=== PATIENT | female | born 1940 | race Caucasian/White ===

== ENCOUNTER 2018-06-09 20:23 | Inpatient (IN) | payer MEDICARE, OTHER ==
--- NOTE | 2018-06-09 21:31 | ED ---
Fall HPI - General Source: patient Mode of arrival: EMS <Nyasia Cline - Last Filed: 06/10/18 05:10> <Sera Sharma - Last Filed: 06/29/18 04:06> - General Chief Complaint: Fall Stated Complaint: Hip Fx Time Seen by Provider: 06/09/18 21:14 - History of Present Illness Initial Comments: 77-year-old female patient presents to the emergency department today as a transfer from a hospital in [facility] for right hip fracture. Patient states around 1 PM this afternoon she was in the garage airing out some rags when she turned, fell, and landed on the right hip. Patient states that she was unable to stand or walk due to severe right hip pain. States the pain radiated down her leg. She denies any numbness or tingling to the right lower extremity. Patient denies hitting her head or losing consciousness during the fall. Patient states that she did have x-rays at the other hospital which did show a right hip fracture so she was transferred here for further evaluation. Patient is traveling to the area from [place]. She denies any other injuries. Denies any significant past medical history. Does not take any medications. Patient denies any headache, neck pain, back pain, chest pain, shortness of breath, dizziness, weakness, abdominal pain, nausea, vomiting, or difficulties with bowel movements or urination. (Nyasia Cline) - Related Data Home Medications Medication Instructions Recorded Confirmed Ascorbic Acid [Vitamin C] 500 mg PO DAILY 06/09/18 06/09/18 Aspirin EC [Ecotrin Low Dose] 81 mg PO DAILY 06/09/18 06/09/18 Calcium Carbonate/Vitamin D3 1 tab PO DAILY 06/09/18 06/09/18 [Calcium 500-Vit D3 200 Tablet] Flaxseed Oil [[place]-3 Flaxseed Oil] 1,000 mg PO DAILY 06/09/18 06/09/18 Multivitamins, Thera [Multivitamin 1 tab PO DAILY 06/09/18 06/09/18 (formulary)] [place]-3 Fatty Acids/Fish Oil [Fish 1 cap PO DAILY 06/09/18 06/09/18 Oil 1,000 mg Softgel] Vitamin E 100 unit PO DAILY 06/09/18 06/09/18 Previous Rx's Medication Instructions Recorded Aspirin 325 mg PO BID #60 tab 06/14/18 Docusate [Colace] 100 mg PO BID #60 capsule 06/14/18 HYDROcodone/APAP 5-325MG [[place] 1 tab PO Q4HR PRN #42 tab 06/14/18 5-325] Aspirin 325 mg PO BID #4 tab 06/15/18 HYDROcodone/APAP 5-325MG [[place] 1 - 2 tab PO Q4-6H PRN #10 tab 06/15/18 5-325] Allergies Allergy/AdvReac Type Severity Reaction Status Date / Time No Known Allergies Allergy Verified 06/09/18 23:23 Review of Systems ROS Other: All systems not noted in ROS Statement are negative. <Nyasia Cline - Last Filed: 06/10/18 05:10> ROS Other: All systems not noted in ROS Statement are negative. <Sera Sharma - Last Filed: 06/29/18 04:06> ROS Statement: Those systems with pertinent positive or pertinent negative responses have been documented in the HPI. Past Medical History Additional Past Medical History / Comment(s): eye problems History of Any Multi-Drug Resistant Organisms: None Reported Additional Past Surgical History / Comment(s): cataracts Past Psychological History: No Psychological Hx Reported Smoking Status: Never smoker Past Alcohol Use History: None Reported Past Drug Use History: None Reported - Past Family History Mother History Unknown: Yes Father History Unknown: Yes <Nyasia Cline - Last Filed: 06/10/18 05:10> General Exam Limitations: no limitations General appearance: alert, in no apparent distress, other (This is a well- developed, well-nourished elderly female patient in no acute distress. Vital signs upon presentation are temperature 98.6F, pulse 77, respirations 18, blood pressure 134/75, pulse ox 96% on room air.) Eye exam: Present: normal appearance, PERRL, EOMI. Absent: scleral icterus, conjunctival injection, periorbital swelling ENT exam: Present: normal exam, normal oropharynx, mucous membranes moist Neck exam: Present: normal inspection, full ROM. Absent: tenderness, meningismus, lymphadenopathy Respiratory exam: Present: normal lung sounds bilaterally. Absent: respiratory distress, wheezes, rales, rhonchi, stridor Cardiovascular Exam: Present: regular rate, normal rhythm, normal heart sounds. Absent: systolic murmur, diastolic murmur, rubs, gallop, clicks GI/Abdominal exam: Present: soft, normal bowel sounds. Absent: distended, tenderness, guarding, rebound, rigid Extremities exam: Present: full ROM, tenderness (Right hip tenderness), normal capillary refill, other (External rotation of the right leg. Skin is pink, warm , and dry. Cap refills less than 3 seconds. Pedal and posttibial pulses are 2 + and equal bilaterally.). Absent: normal inspection, pedal edema, joint swelling, calf tenderness Neurological exam: Present: alert, oriented X3, CN II-XII intact Psychiatric exam: Present: normal affect, normal mood Skin exam: Present: warm, dry, intact, normal color. Absent: rash <Nyasia Cline - Last Filed: 06/10/18 05:10> Vital Signs 06/09/18 06/09/18 06/10/18 20:48 23:33 00:38 Temperature 98.6 F 98.3 F Pulse Rate 77 69 Pulse Rate [ 72 Left Pulse Oximetery] Respiratory 18 16 18 Rate Blood Pressure 134/75 145/76 Blood Pressure 148/72 [Left Arm] O2 Sat by Pulse 96 95 97 Oximetry Medical Decision Making - Lab Data Result diagrams: 06/09/18 23:31 - Radiology Data Radiology results: report reviewed, image reviewed <Nyasia Cline - Last Filed: 06/10/18 05:10> - Lab Data Result diagrams: 06/15/18 06:51 06/13/18 07:22 <Sera Sharma - Last Filed: 06/29/18 04:06> - Medical Decision Making 77-year-old female patient presented as a transfer from the [facility] for right hip fracture. Physical examination did reveal external rotation of the right leg. Images reviewed and did show a mildly displaced intertrochanteric fracture of the right femur. My attending Dr. Sharma did speak to Dr. Wills and he agrees to admission. He requests imaging from hip to knee for possible IM nailing tomorrow. I did discuss findings, results, and plan with the patient, she is agreeable. Ordered preop labs and EKG. (Nyasia Cline) I personally saw and examined the patient. I reviewed and agree with the mid- level provider findings including all diagnostic interpretations and treatment plans as written unless otherwise stated. I was present for herrera portions of any procedures performed. (Sera Sharma) - Radiology Data One view x-ray of the chest is obtained. There is no heart failure nor confluent pneumonic infiltrate. Costophrenic angles are clear. Mediastinum is normal. There is mild flattening of the diaphragm. Impression by Dr. Cross shows probably some COPD. No active cardiopulmonary disease. 4 views of the right femur are obtained. There is a comminuted intertrochanteric fracture of the right femur. There is no dislocation. There is acetabular spurring. Impression by Dr. Cross shows acute intertrochanteric fracture right femur with large fragment of the lesser trochanter. Outside images did show a mildly displaced intertrochanteric fracture of the right femur. The pelvis x-ray appeared normal. (Nyasia Cline) Disposition Decision to Admit Reason: Admit from [facility] Decision Date: 06/09/18 Decision Time: 22:58 <Nyasia Cline - Last Filed: 06/10/18 05:10> <Sera Sharma - Last Filed: 06/29/18 04:06> Clinical Impression: Displaced intertrochanteric fracture of right femur Disposition: ADMITTED IP TO THIS [facility] Condition: Fair
[2018-06-09] MEDS ORDERED: NALOXONE 0.4 MG/ML 1 ML VIAL IV PRN (22:56)
[2018-06-09] MEDS ORDERED: ONDANSETRON 4 MG/2 ML VIAL IVP PRN (22:56)
[2018-06-09] MEDS ORDERED: ACETAMINOPHEN TAB 325 MG TAB PO PRN (22:56)
[2018-06-09] MEDS: MORPHINE SULFATE 4 MG/ML SYRINGE IV PRN (23:29)
[2018-06-09] MEDS: SODIUM CHLORIDE 0.9% 1,000 ML IV SCH (23:32)
[2018-06-09 23:40] LABS: Basophils % (A) 0 %; Eosinophils # (A) 0.1 k/uL (0-0.7); Eosinophils % (A) 1 %; HGB 12.5 gm/dL (11.4-16.0); Lymphocytes # (A) 0.8 k/uL (1.0-4.8); Lymphocytes % (A) 7 %; MCH 29.1 pg (25.0-35.0); MCV 88.2 fL (80.0-100.0); Mean Platelet Volume 7.5; Monocytes # (A) 0.4 k/uL (0-1.0); Monocytes % (A) 4 %; Neutrophils # (A) 10.3 k/uL (1.3-7.7); Neutrophils % (A) 88 %; Platelet Count 198 k/uL (150-450); RBC 4.31 m/uL (3.80-5.40); RDW 12.7 % (11.5-15.5); WBC 11.7 k/uL (3.8-10.6)
[2018-06-09 23:50] LABS: INR 1.1 (<1.2); Partial Thromboplastin Time 23.1 sec (22.0-30.0); Prothrombin Time 10.6 sec (9.0-12.0)
--- NOTE | 2018-06-10 00:22 | XR ---
EXAMINATION TYPE: XR femur RT DATE OF EXAM: 06/10/2018 COMPARISON: NONE HISTORY: Right hip pain TECHNIQUE: 4 views FINDINGS: There is comminuted intertrochanteric fracture right femur. There is no dislocation. There is acetabular spurring. IMPRESSION: Acute intertrochanteric fracture right femur with large fragment of the lesser trochanter .
--- NOTE | 2018-06-10 00:23 | XR ---
EXAMINATION TYPE: XR chest 1V portable DATE OF EXAM: 06/10/2018 COMPARISON: NONE HISTORY: Preop TECHNIQUE: Single frontal view of the chest is obtained. FINDINGS: There is no heart failure nor confluent pneumonic infiltrate. Costophrenic angles are henrietta r. Mediastinum is normal. There is mild flattening of the diaphragm. IMPRESSION: There is probably some COPD. No active cardiopulmonary disease.
[2018-06-10] MEDS: MORPHINE SULFATE 4 MG/ML SYRINGE IV PRN ×2 (05:10→11:35)
--- NOTE | 2018-06-10 09:10 | P.HPOR ---
History of Present Illness H&P Date: 06/10/18 Chief Complaint: Right hip pain The patient is a pleasant 77-year-old female who resented to the emergency department at [facility] after [place] [facility]. She states that yesterday she fell around 1 PM while in the garage [place] [facility] She states that she thinks she tripped on something when she turned quickly and fell directly on her right side. She denies hitting her head or other injuries. She was found to have a right hip fracture at the hospital on [facility] and was transferred here for further evaluation and care by orthopedic surgery. She currently lives in [place] and again was here in the area at [place] [facility] She states that her family is currently on their way. The patient denies any major medical problems in regards to hypertension, stroke , heart attack, or cancer. Today, the patient is experiencing right hip pain as expected. She states that she is comfortable at this time. She denies fever , chills, rigors, abdominal pain, shortness breath, chest pain at this time. Review of Systems Constitutional: Denies chills, Denies fatigue, Denies fever Cardiovascular: Denies chest pain, Denies shortness of breath Respiratory: Denies cough Gastrointestinal: Denies diarrhea, Denies nausea, Denies vomiting Musculoskeletal: Denies frequent falls Musculoskeletal: right: hip pain, hip stiffness, hip swelling Past Medical History Additional Past Medical History / Comment(s): eye problems History of Any Multi-Drug Resistant Organisms: None Reported Additional Past Surgical History / Comment(s): cataracts Past Anesthesia/Blood Transfusion Reactions: No Reported Reaction Past Psychological History: No Psychological Hx Reported Smoking Status: Never smoker Past Alcohol Use History: None Reported Past Drug Use History: None Reported - Past Family History Mother History Unknown: Yes Father History Unknown: Yes Medications and Allergies Home Medications Medication Instructions Recorded Confirmed Type Ascorbic Acid [Vitamin C] 500 mg PO DAILY 06/09/18 06/09/18 History Aspirin EC [Ecotrin Low Dose] 81 mg PO DAILY 06/09/18 06/09/18 History Calcium Carbonate/Vitamin D3 1 tab PO DAILY 06/09/18 06/09/18 History [Calcium 500-Vit D3 200 Tablet] Flaxseed Oil [[place]-3 Flaxseed Oil] 1,000 mg PO DAILY 06/09/18 06/09/18 History Multivitamins, Thera [Multivitamin 1 tab PO DAILY 06/09/18 06/09/18 History (formulary)] [place]-3 Fatty Acids/Fish Oil [Fish 1 cap PO DAILY 06/09/18 06/09/18 History Oil 1,000 mg Softgel] Vitamin E 100 unit PO DAILY 06/09/18 06/09/18 History Allergies Allergy/AdvReac Type Severity Reaction Status Date / Time No Known Allergies Allergy Verified 06/09/18 23:23 Physical Examination The patient is a 77 year old female that is no acute distress. She is alert and oriented x3. The patient's head is normocephalic and atraumatic. Exam of the cervical spine reveals no pain upon palpation or range of motion. Exam of the bilateral upper extremities reveal no obvious deformities or pain upon range of motion. Exam of the left lower extremity reveals no pain upon palpation. Exam of the right lower extremity reveals a externally rotated and shortened leg. No pain upon palpation to the lateral hip. There is pain upon logrolling and any range of motion of the leg. Bilateral calves are soft and nontender. Patient has good foot and ankle motion bilaterally. Neurological and circulatory status is intact. Results - Labs Labs: Abnormal Lab Results - Last 24 Hours (Table) 06/09/18 Range/Units 23:31 WBC 11.7 H (3.8-10.6) k/uL Neutrophils # 10.3 H (1.3-7.7) k/uL Lymphocytes # 0.8 L (1.0-4.8) k/uL H & H 06/09/18 Range/Units 23:31 Hgb 12.5 (11.4-16.0) gm/dL Hct 38.0 (34.0-46.0) % Coagulation 06/09/18 Range/Units 23:31 INR 1.1 (<1.2) Result Diagrams: 06/09/18 23:31 - Diagnostic results Hip x-ray: image reviewed (Femur x-rays dated 06/10/2018 reveals a acute intertrochanteric fracture with a large fragment of the lesser trochanter.) Assessment and Plan (1) Fall Current Visit: Yes Status: Acute Code(s): W19.XXXA - UNSPECIFIED FALL, INITIAL ENCOUNTER SNOMED Code(s): 3547284 (2) Displaced intertrochanteric fracture of right femur Current Visit: Yes Status: Acute Code(s): S72.141A - DISPLACED INTERTROCHANTERIC FRACTURE OF RIGHT FEMUR, INIT SNOMED Code(s): 985657016 Plan: The clinical and x-ray findings were discussed with the patient. The case was also discussed with Dr. Wills. We are recommending intertrochanteric nailing with a TFN. She will be scheduled for this procedure this afternoon. She'll remain nothing by mouth. We will await surgical clearance by Dr. Bolivar. Surgical risks were discussed at length with the patient. Possible risks and complications including but not limited to risk of bleeding, infection , dislocation, DVT, stroke, heart attack, and were discussed. The patient would like to proceed with surgery. She will remain nonweightbearing on bedrest until surgery. The patient would like to return back to her home in [place] after surgery. Case management is also on the case for discharge planning.
--- NOTE | 2018-06-10 11:56 | CONS ---
CONSULTATION CHIEF COMPLAINT: A 77-year-old white female who came in, transferred from [place] for right hip fracture. She was that she turned, fell down on her right hip, unable to stand or walk due to severe hip pain, radiating down her leg, no numbness in her leg. She had x-rays which showed a right hip fracture, transferred here for further evaluation, transferred to the area from [place]. Does not take any home medications except for her vitamins. Home medicines ascorbic acid and aspirin, calcium flexi, multivitamin, omega-3 acids, vitamin E. ALLERGIES: No known drug allergies. 14 POINT REVIEW OF SYSTEMS: Negative except for as mentioned in HPI. PAST MEDICAL HISTORY: Cataracts. SOCIAL HISTORY: No smoking. No alcohol. No illicit drugs. FAMILY HISTORY: Mother and father negative. Temperature 98.6, pulse 69 to 77, respiratory 16 to 18, blood pressure 130s to 140s/70s, O2 is 95%-97% on room air. CARDIOVASCULAR: S1, S2. Lungs are clear. GI: Soft, nontender. EXTREMITIES: No cyanosis, clubbing. DERM: Negative. NEUROLOGIC: Alert and orient x3. PSYCH: Fair mood and affect. SKIN: No rash, excoriation, or bruising. Blood pressure 134/75, O2 is 96% on room air, respiratory 16 to 18, pulse 70s, temp 98.6. ASSESSMENT: Right hip fracture. No significant past medical history. We are awaiting on EKG at this time. If the EKG looks good, she will be able to be cleared for surgery at this time. MMODL / IJN: [id number] /
[2018-06-10] MEDS ORDERED: IV FLUID CONTINUATION 1,000 ML IV ONE (13:56)
[2018-06-10] MEDS ORDERED: KETAMINE 10 MG/ML 20 ML VIAL ONE (14:48)
[2018-06-10] MEDS ORDERED: ESMOLOL 100 MG/10 ML VIAL ONE (14:48)
[2018-06-10] MEDS ORDERED: fentaNYL (PF) 50 MCG/ML 2 ML AMP ONE (14:48)
[2018-06-10] MEDS ORDERED: MIDAZOLAM 2 MG/2 ML VIAL ONE (14:48)
[2018-06-10] MEDS ORDERED: PHENYLEPHRINE-0.9% NACL SYG 1 MG/10 ML SYRINGE ONE (14:48)
[2018-06-10] MEDS ORDERED: ePHEDrine SULFATE/0.9% NACL/PF 50 MG/5 ML SYRINGE IV ONE (14:48)
[2018-06-10] MEDS ORDERED: SODIUM CHLORIDE 0.9% 50 ML with ceFAZolin 2,000 MG IV ONE ×2 (14:48)
[2018-06-10] MEDS ORDERED: LACTATED RINGERS 1,000 ML IV ONE (15:55)
[2018-06-10] MEDS ORDERED: HYDROmorphone 0.5 MG/0.5 ML SYRINGE IVP PRN ×3 (16:41)
[2018-06-10] MEDS ORDERED: TEMAZEPAM 15 MG CAP PO PRN (16:41)
[2018-06-10] MEDS ORDERED: MAGNESIUM HYDROXIDE 2,400 MG/10 ML CUP PO PRN (16:41)
[2018-06-10] MEDS ORDERED: SODIUM CHLORIDE 0.9% 1,000 ML IV ONE (17:37)
[2018-06-10] MEDS: HYDROcodone/APAP 5-325MG 1 EACH TAB PO PRN ×2 (18:33→23:05)
[2018-06-10] MEDS: SODIUM CHLORIDE 0.9% 1,000 ML IV SCH (18:51)
[2018-06-10] MEDS ORDERED: HYDROmorphone 1 MG/ML 1 ML SYRINGE IVP PRN ×2 (19:59)
[2018-06-10] MEDS: HYDROmorphone 1 MG/ML 1 ML SYRINGE IVP PRN (20:04)
[2018-06-10] MEDS: SENNOSIDES-DOCUSATE SODIUM 1 EACH TAB PO SCH (20:05)
--- NOTE | 2018-06-10 20:43 | OP ---
OPERATIVE REPORT DATE OF SURGERY: 06/10/2018 PREOPERATIVE DIAGNOSIS: Right displaced intertrochanteric hip fracture. POSTOPERATIVE DIAGNOSIS: Right displaced intertrochanteric hip fracture. PROCEDURE: Operative fixation of right intertrochanteric hip fracture with long intramedullary hip screw. (The patient is from out of town and postoperative followup will be obtained by a separate physician who has already agreed to follow the patient.) SURGEON: Dr. Ar Wills. SQUARING MACHINE OPERATOR: Sophia Sifuentes NP. ANESTHESIA: Spinal. FLUIDS: 1700 mL crystalloid. BLOOD LOSS: 200 mL. URINE OUTPUT: 140 mL crystalloid. COMPLICATIONS: The patient had a sustained run of tachycardia at the conclusion of the procedure during skin closure. Her heart rate was in the 140s. Anesthesia managed the patient, who remained alert and conscious. She had vital signs checked before leaving the operating room and her vital signs remained stable. The patient is to be sent to a telemetry floor for continuous monitoring with a cardiology consult, serial troponins and a 12-lead EKG. INDICATION: The patient is a very pleasant, previously healthy 77-year-old female who is visiting [place] from her home in [place], [place]. The patient sustained a ground-level fall resulting in a right hip fracture. She was initially seen at an outside emergency department and was transferred to our facility. She was found to have an isolated hip fracture and was determined to be in good health, so she was admitted to Orthopedics. I met with the patient preoperatively to discuss treatment of her fracture. It was my recommendation to stabilize her fracture with a long intramedullary hip screw. We discussed the potential risks and complications of surgery, including but not limited to risk of anesthesia, risk of superficial infection, risk of deep infection, risk of delayed wound healing, risk of damage to local blood vessels or nerves, risk of fracture nonunion, risk of fracture malunion, risk of hardware failure, risk of varus collapse, risk of cut-out of the helical blade, risk of chronic pain, risk of chronic swelling, risk of inability to regain pre-injury level of function, risk of DVT, risk of PE, risk of pneumonia, risk of pressure sore, risk of urinary tract infection, risk of acute coronary event, risk of stroke and possible loss of life or limb. The patient voiced her understanding of all of this and also acknowledged that there are other less common complications that are possible. She provided her verbal and written consent to go forward with surgery. PROCEDURE: The patient was identified in Preoperative Holding and the correct right leg was marked with my initials. I reviewed the consent form with the patient and all of her questions were answered. The patient was then brought back to the operating room. She was positioned on the edge of her gurney and a spinal anesthetic was administered by Anesthesia. She was also given preoperative Ancef for prophylactic antibiotics. Once her spinal had taken effect, she was carefully transferred to a fracture table. Light sedation was given. The affected right leg was placed into a boot and the left leg was secured to a well leg gardner. A peroneal post was placed. The right arm was draped across her body and her torso was shifted toward the left. Once the patient was adequately positioned on the fracture table and secured, a timeout was performed identifying the correct patient, operative extremity and procedure. Once the timeout had been completed, a closed reduction was performed with the aid of the fracture table. Using a combination of longitudinal traction, internal rotation and adduction, the hip was reduced. The leg was then prepped and draped in the standard sterile fashion. I began by making a small stab incision in line with the femur proximal to the greater trochanter. Skin incision was made with a 10 blade scalpel and dissection was carried through the subcutaneous tissue. A guidepin was then placed just medial to the tip of the greater trochanter on an AP fluoroscopic image and centered down the femoral canal on a lateral fluoroscopic image. A mallet was used to tap the pin in place and then a test driver was used to drive the pin down to the level of the lesser trochanter. A soft tissue protector and opening reamer were then placed over the guidepin and an entry point was made in the proximal femur. A ball-tipped guidewire was then placed down past the fracture at the distal end of the femur. A cannulated measuring device was used and I determined a 360 mm nail to be the appropriate length. I then sequentially reamed in 0.5 mm increments, starting with an 8.5 mm increment. Chatter was obtained with a 10 mm reamer. I then over-reamed by 1.5 mm up to an 11.5 mm reamer. A 360 x 10 mm long TFN nail was dispensed and hooked up to a targeting arm. I verified that the nail was completely seated within the targeting arm and that the slots for the helical blade lined up with the trocar on the targeting arm. The nail was then inserted over the guidewire, starting with the targeting arm anteriorly, and as the nail was passed down the femoral canal the targeting arm was rotated laterally. The nail was seated. During the process of seating the nail, there was slight loss of reduction. Once the nail was fully seated, the trocar was placed through the targeting arm and a stab incision was made at the corresponding level of the lateral skin. Skin incision was made with a 10 blade scalpel through the subcutaneous tissue and down through the IT band. The trocar was brought up to the lateral cortex of the femur. A guidepin was then placed in the center center position of the femoral head and measured to be 85 mm in length. A drill was then set and a path was drilled to a depth of 85 mm. The helical blade was then gently tapped into place. The set screw proximally was brought all the way down and then backed off half a turn to allow for compression. The helical blade trocar was then turned counterclockwise to generate some compression across the fracture site. The guidepin was then removed through the helical blade. Attention was then turned distally. Perfect circles were obtained and a distal interlocking screw was placed through the oblong hole to allow for compression. Final fluoroscopic images were taken, including an AP and lateral of the hip, an AP and lateral of the mid shaft of the femur, and an AP and lateral of the distal femur. The reduction appeared adequate and the hardware was in appropriate position. The 3 wounds were copiously irrigated. The IT band and deep fascia layer were closed with 0 Vicryl. The deep subcutaneous tissue was reapproximated using 2-0 Vicryl. The skin was closed with jasiel. A sterile dressing consisting of Adaptic, 4 x 4, and Tegaderm was applied. The patient was then woken from her sedation, transferred out of the fracture table and onto a gurney and brought to PACU, having tolerated the procedure well. Sophia Sifuentes NP, was required as a skilled events and promotions assistant for patient positioning, reduction of the fracture, placement of hardware, closure of wounds and application of dressing. PLAN: The patient had a run of tachycardia into the 140s. We are going to place the patient on a telemetry floor and consult Cardiology. We will also obtain a 12-lead EKG and serial troponins. The patient can bear weight as tolerated on her right leg. She will receive 2 doses of postoperative antibiotics. She will need 4 weeks of DVT prophylaxis with Lovenox. We will also start a bone health workup with a 25 hydroxy vitamin D level. Since the patient is out of town, once she is cleared for discharge home she is going to follow up with an acquaintance of [facility] in [place] who is a well respected board- certified orthopedic surgeon in [place]. His name is Dr. Mateusz Caraballo M.D. PATRICIA / NIKI: [id number] /
[2018-06-10] MEDS: hydrOXYzine PAMOATE 25 MG CAP PO PRN (23:04)
[2018-06-10] MEDS: ceFAZolin IN SWFI 2 GM/20 ML SYRINGE IVP SCH (23:05)
[2018-06-11] MEDS: HYDROmorphone 1 MG/ML 1 ML SYRINGE IVP PRN (03:39)
[2018-06-11] MEDS: SODIUM CHLORIDE 0.9% 1,000 ML IV SCH ×2 (03:41→18:58)
--- NOTE | 2018-06-11 05:55 | FL ---
FLUOROSCOPY 3 minutes and 16 seconds of fluoroscopy time were utilized during intramedullary evens fixation of the right hip. 5 images document the procedure.
[2018-06-11 06:51] LABS: Basophils % (A) 0 %; Eosinophils % (A) 0 %; HCT 22.9 % (34.0-46.0); Lymphocytes # (A) 1.2 k/uL (1.0-4.8); Lymphocytes % (A) 18 %; MCH 30.3 pg (25.0-35.0); MCHC 33.8 g/dL (31.0-37.0); MCV 89.8 fL (80.0-100.0); Mean Platelet Volume 7.7; Monocytes # (A) 0.6 k/uL (0-1.0); Monocytes % (A) 8 %; Neutrophils # (A) 5.2 k/uL (1.3-7.7); Neutrophils % (A) 73 %; Platelet Count 130 k/uL (150-450); RBC 2.55 m/uL (3.80-5.40); RDW 12.7 % (11.5-15.5); WBC 7.1 k/uL (3.8-10.6)
[2018-06-11 06:53] LABS: HGB 7.7 gm/dL (11.4-16.0)
[2018-06-11] MEDS: HYDROcodone/APAP 5-325MG 1 EACH TAB PO PRN ×3 (08:45→22:48)
--- NOTE | 2018-06-11 09:12 | P.PN ---
Subjective Progress Note Date: 06/11/18 The patient is doing well this morning and her pain is controlled. She denies CP or SOB. Objective - Vital Signs Vital signs: Vital Signs Temp 97.8 F 06/11/18 08:48 Pulse 70 06/11/18 08:48 Resp 16 06/11/18 08:48 BP 100/66 06/11/18 08:48 Pulse Ox 96 06/11/18 08:48 Intake & Output 06/10/18 06/11/18 06/11/18 18:59 06:59 18:59 Intake Total 1500 600 Output Total 540 625 Balance 960 -25 Intake: IV 1500 Intake, IV Titration 600 Amount Sodium Chloride 0.9% 1, 600 000 ml @ 75 mls/hr IV . [id number] [facility] Rx#:[id number] Output: Urine 340 625 Estimated Blood Loss 200 Other: Voiding Method Indwelling Catheter Indwelling Catheter # Voids 3 - Exam A focused exam of the right leg was conducted. On inspection, the surgical dressings are clean with no saturated blood. The thigh is soft. Motor and sensory function is intact. - Labs CBC & Chem 7: 06/11/18 06:16 Labs: Abnormal Lab Results - Last 24 Hours (Table) 06/11/18 Range/Units 06:16 RBC 2.55 L (3.80-5.40) m/uL Hgb 7.7 L D (11.4-16.0) gm/dL Hct 22.9 L (34.0-46.0) % Plt Count 130 L (150-450) k/uL Assessment and Plan Plan: POD#1 s/p operative fixation of right IT hip fracture with long IMHS. Doing well. 1. WBAT right LE 2. 2 doses post-op antibiotics 3. DVT prophylaxis with lovenox 40 mg daily x 4 weeks 4. Appreciate IM assistance with periop medical management. 5. Dispo planning - may need SNF/Rehab. The patient lives in [place], [place] and we will arrange post-op follow-up there with Dr. Mateusz Sawyer an orthopaedic surgeon
[2018-06-11] MEDS: ENOXAPARIN 40 MG/0.4 ML SYRINGE SQ SCH (10:06)
[2018-06-11] MEDS: ceFAZolin IN SWFI 2 GM/20 ML SYRINGE IVP SCH (10:07)
[2018-06-11] MEDS ORDERED: HYDROmorphone 2 MG TAB PO PRN ×3 (19:21→19:22)
[2018-06-11] MEDS: SENNOSIDES-DOCUSATE SODIUM 1 EACH TAB PO SCH (19:44)
--- NOTE | 2018-06-11 19:51 | PN ---
PROGRESS NOTE SUBJECTIVE: 77-year-old white female, status post left hip surgery. She remains on Lovenox and pain medication. Restoril for sleep. Her hemoglobin dropped to 7.7. We will monitor it. If it continues to drop below 7, she may need a blood transfusion. INR is 1.1. Pain medicine. Please see orders. Denies any shortness of breath or chest pain. Continue current treatment. MMODL / IJN: [id number] /
--- NOTE | 2018-06-11 20:26 | CONS ---
CONSULTATION This patient's medical records and vital signs were reviewed. The patient was admitted with a fractured right hip. She is visiting from [place]. The patient underwent surgery. During the surgery, the patient had a short episode of atrial tachycardia. Patient denies any cardiac history. There is no history of diabetes or hypertension. There is no history of angina or prior myocardial infarction. Several years ago, patient had similar episode of atrial tachycardia chest pain. The patient otherwise, physically and functionally active. PAST MEDICAL HISTORY: Is history of cataract surgery. No history of any other major surgeries. PHYSICAL EXAMINATION: The patient's blood pressure is 100/66 mmHg. The patient is afebrile. Oxygen saturation is 95%. HEENT examination is negative. NECK: Supple. There is no increase in jugular venous pressure. Both the carotid pulses are felt. There is no bruit. Chest is symmetrical. Heart the PMI is not felt. First and second heart sounds are normal. There is no evidence of any murmur. Lungs are clinically clear to auscultation and percussion. ABDOMEN: Soft. Extremities, peripheral pulsations 1+. EKG shows normal sinus rhythm without acute ischemic changes. The monitor shows which shows short runs of atrial tachycardia. FINAL IMPRESSION: This patient had a nonsustained atrial tachycardia. She is currently asymptomatic. The patient's blood pressure is borderline. In view of that, we will not start the patient on beta-kain. Patient is advised to follow up with as an outpatient and can be evaluated with a 24 hour DCG to rule out any recurrent episodes of atrial tachycardia. The patient is currently taking the subcu Lovenox. We can consider giving Xarelto 10 mg daily for 4 weeks for DVT prophylaxis. Thank you very much for letting me participate in the care of this nice lady. MMODL / IJN: [id number] /
[2018-06-11] MEDS: hydrOXYzine PAMOATE 25 MG CAP PO PRN (22:47)
[2018-06-12] MEDS: SODIUM CHLORIDE 0.9% 1,000 ML IV SCH ×2 (04:55→17:52)
[2018-06-12] MEDS: HYDROcodone/APAP 5-325MG 1 EACH TAB PO PRN ×4 (05:41→23:27)
[2018-06-12 07:08] LABS: Basophils % (A) 0 %; Eosinophils # (A) 0.1 k/uL (0-0.7); Eosinophils % (A) 1 %; HCT 22.7 % (34.0-46.0); HGB 7.4 gm/dL (11.4-16.0); Lymphocytes # (A) 1.2 k/uL (1.0-4.8); Lymphocytes % (A) 16 %; MCH 29.2 pg (25.0-35.0); MCHC 32.8 g/dL (31.0-37.0); MCV 89.1 fL (80.0-100.0); Mean Platelet Volume 7.8; Monocytes # (A) 0.6 k/uL (0-1.0); Monocytes % (A) 8 %; Neutrophils # (A) 5.5 k/uL (1.3-7.7); Neutrophils % (A) 73 %; Platelet Count 144 k/uL (150-450); RBC 2.55 m/uL (3.80-5.40); RDW 12.9 % (11.5-15.5); WBC 7.6 k/uL (3.8-10.6)
[2018-06-12] MEDS: ENOXAPARIN 40 MG/0.4 ML SYRINGE SQ SCH (11:23)
--- NOTE | 2018-06-12 13:18 | P.PN ---
Subjective Progress Note Date: 06/12/18 This is a 77 year-old female who is status post intramedullary hip screw fixation. This is postoperative day #2. Patient states that her pain is well controlled and she has been up and out of bed with physical therapy. Patient denies any new symptoms or complaints today.Patient denies any fever/chills, numbness, weakness, tingling, abdominal pain, shortness of breath or chest pain. Objective - Vital Signs Vital signs: Vital Signs Temp 98.2 F 06/12/18 11:19 Pulse 77 06/12/18 11:19 Resp 16 06/12/18 11:19 BP 98/62 06/12/18 11:19 Pulse Ox 94 L 06/12/18 11:19 Intake & Output 06/11/18 06/12/18 06/12/18 18:59 06:59 18:59 Intake Total 240 1200 Output Total 1700 1000 1400 Balance -1460 200 -1400 Intake: Intake, IV Titration 1200 Amount Sodium Chloride 0.9% 1, 1200 000 ml @ 75 mls/hr IV . [id number] [facility] Rx#:[id number] Oral 240 Output: Urine 1700 1000 1400 Uretheral (Choudhary) 1100 Other: Voiding Method Indwelling Catheter Indwelling Catheter - Exam Vital signs are stable. Patient is in no acute distress and is alert and oriented 3. Calf is soft and nontender to palpation. Dressing is clean, dry, and intact. Patient has full foot and ankle motion without pain or difficulty. Neurovascular status and circulatory status are intact. - Labs CBC & Chem 7: 06/12/18 06:45 Labs: Abnormal Lab Results - Last 24 Hours (Table) 06/12/18 Range/Units 06:45 RBC 2.55 L (3.80-5.40) m/uL Hgb 7.4 L (11.4-16.0) gm/dL Hct 22.7 L (34.0-46.0) % Plt Count 144 L (150-450) k/uL Assessment and Plan (1) Status post hip surgery Current Visit: Yes Status: Acute Code(s): Z98.890 - OTHER SPECIFIED POSTPROCEDURAL STATES SNOMED Code(s): 002380577 (2) Displaced intertrochanteric fracture of right femur Current Visit: Yes Status: Acute Code(s): S72.141A - DISPLACED INTERTROCHANTERIC FRACTURE OF RIGHT FEMUR, INIT SNOMED Code(s): 468125074 (3) Fall Current Visit: Yes Status: Acute Code(s): W19.XXXA - UNSPECIFIED FALL, INITIAL ENCOUNTER SNOMED Code(s): 9773907 Plan: Continue routine postop care. Continue antocoagulation. Toe-touch weightbearing with a walker. Daily dressing changes. Likely discharge to rehab in the near future.
[2018-06-12] MEDS: SODIUM FERRIC GLUCONAT-SUCROSE 125 MG in SODIUM CHLORIDE 0.9% 100 ML IVPB SCH (13:32)
--- NOTE | 2018-06-12 14:17 | ECHOF ---
Referral Reason:intraoperative tachacardia in OR MEASUREMENTS -------- HEIGHT: 154.9 cm WEIGHT: 48.5 kg BP: 94/53 RVIDd: 2.6 cm (< 3.3) IVSd: 1.0 cm (0.6 - 1.1) LVIDd: 3.4 cm (3.9 - 5.3) LVPWd: 0.9 cm (0.6 - 1.1) IVSs: 1.4 cm LVIDs: 2.2 cm LVPWs: 1.2 cm LA Diam: 2.3 cm (2.7 - 3.8) LAESV Index (A-L): 16.03 ml/m Ao Diam: 2.9 cm (2.0 - 3.7) AV Cusp: 1.9 cm (1.5 - 2.6) MV EXCURSION: 18.612 mm (> 18.000) MV EF SLOPE: 38 mm/s (70 - 150) EPSS: 0.5 cm MV E Olaf: 0.79 m/s MV DecT: 305 ms MV A Olaf: 0.74 m/s MV E/A Ratio: 1.07 RAP: 5.00 mmHg RVSP: 38.18 mmHg FINDINGS -------- Sinus rhythm. This was a technically good study. The left ventricular size is normal. Left ventricular wall thickness is normal. Overall left vent ricular systolic function is normal with, an EF between 60 - 65 %. The right ventricle is normal in size. Normal LA size by volume 22+/-6 ml/m2. The right atrium is normal in size. The aortic valve is trileaflet and appears structurally normal. The mitral valve leaflets are mildly thickened. Mild tricuspid regurgitation present. There is mild pulmonary hypertension. The right ventricular systolic pressure, as measured by Doppler, is 38.18mmHg. The pulmonic valve was not well visualized. The aortic root size is normal. Normal inferior vena cava with normal inspiratory collapse consistent with estimated right atrial pre ssure of 5 mmHg. There is no pericardial effusion. CONCLUSIONS -------- 1. Sinus rhythm. 2. This was a technically good study. 3. The left ventricular size is normal. 4. Left ventricular wall thickness is normal. 5. Overall left ventricular systolic function is normal with, an EF between 60 - 65 %. 6. The right ventricle is normal in size. 7. Normal LA size by volume 22+/-6 ml/m2. 8. The right atrium is normal in size. 9. The aortic valve is trileaflet and appears structurally normal. 10. The mitral valve leaflets are mildly thickened. 11. Mild tricuspid regurgitation present. 12. There is mild pulmonary hypertension. 13. The right ventricular systolic pressure, as measured by Doppler, is 38.18mmHg. 14. The pulmonic valve was not well visualized. 15. The aortic root size is normal. 16. Normal inferior vena cava with normal inspiratory collapse consistent with estimated right atrial pressure of 5 mmHg. 17. There is no pericardial effusion. TELEPHONE MESSENGER: Adriana Peterson RDCS
[2018-06-12] MEDS: SENNOSIDES-DOCUSATE SODIUM 1 EACH TAB PO SCH (19:49)
--- NOTE | 2018-06-12 22:34 | PN ---
PROGRESS NOTE SUBJECTIVE: 77-year-old white female status post left hip fracture surgery. Her hemoglobin remains very low. I am going to order some iron infusions. Hemoglobin 7.74 today. She feels weak and fatigued. We will check labs again in the morning. She possibly will need a rehab center also as she is very weak due to severe anemia. Postop pain is being controlled on oral medications. Continues on Xarelto per Dr. Savage which she has been on in the past. We will have to monitor her closely. Echocardiogram for her she has shown normal ejection fraction. She had a short episode of atrial tachycardia. Cardiology saw her. Blood thinners as mentioned was given by them. They switched Lovenox off to Xarelto 10 mg daily for 4 weeks for DVT prophylaxis. No beta-kain are being given. Blood pressure is borderline. If it goes up, we will start a beta kain. Otherwise, possible rehab center will be needed. Her vital signs are still in the high 90s to low 100s systolic over 50s to 60s, O2 is 94 to 96% on room air, temp 98, pulse is 70s to 90s. Respiratory rate 16 to 18. Continue current treatment. PROGNOSIS: Guarded. MMODL / IJN: [id number] /
[2018-06-13] MEDS: HYDROcodone/APAP 5-325MG 1 EACH TAB PO PRN ×3 (05:21→19:23)
[2018-06-13] MEDS: SODIUM CHLORIDE 0.9% 1,000 ML IV SCH (07:51)
[2018-06-13 07:52] LABS: Basophils % (A) 0 %; Eosinophils # (A) 0.2 k/uL (0-0.7); Eosinophils % (A) 2 %; HGB 7.3 gm/dL (11.4-16.0); Lymphocytes # (A) 1.1 k/uL (1.0-4.8); Lymphocytes % (A) 15 %; MCH 30.8 pg (25.0-35.0); MCHC 34.6 g/dL (31.0-37.0); MCV 89.1 fL (80.0-100.0); Mean Platelet Volume 7.9; Monocytes # (A) 0.5 k/uL (0-1.0); Monocytes % (A) 7 %; Neutrophils # (A) 5.5 k/uL (1.3-7.7); Neutrophils % (A) 74 %; Platelet Count 169 k/uL (150-450); RBC 2.36 m/uL (3.80-5.40); RDW 13.2 % (11.5-15.5); WBC 7.4 k/uL (3.8-10.6)
[2018-06-13 08:44] LABS: ALT 32 U/L (9-52); AST 37 U/L (14-36); Albumin 2.5 g/dL (3.5-5.0); Alkaline Phosphatase 47 U/L (38-126); Anion Gap 3 mmol/L; Blood Urea Nitrogen 8 mg/dL (7-17); Calcium 8.1 mg/dL (8.4-10.2); Carbon Dioxide 28 mmol/L (22-30); Chloride 107 mmol/L (98-107); Glucose 115 mg/dL (74-99); Potassium 3.6 mmol/L (3.5-5.1); Sodium 138 mmol/L (137-145); Total Bilirubin 0.3 mg/dL (0.2-1.3); Total Protein 4.8 g/dL (6.3-8.2)
--- NOTE | 2018-06-13 08:54 | CDI ---
Last Revision, October 2017 Documentation Clarification Form Date: 06/13/2018 8:39:52 AM From: Gina Mensah RN, CCDS Admit Date: 06/09/2018 11:04:00 PM Patient Name: Carmen Moreno Visit Number: [id number] ATTENTION: The Clinical Documentation Specialists (CDI) and [facility] Coding Staff appreciate your assistance in clarifying documentation. Please respond to the clarification below the line at the bottom and electronically sign. The CDI & [facility] Coding staff will review the response and follow-up if needed. Please note: Queries are made part of the Legal Health Record. If you have any questions, please contact the author of this message via ITS. Ar Howard MD/ Stacey Johns PA-C "Very low Hemoglobin" is documented in the medical progress note and requires indication of clinical significance and cause. Patients Admitting Diagnosis: Right displaced intertrochanteric hip fracture. Post-Operative Diagnosis: Right displaced intertrochanteric hip fracture. Procedure performed: Operative fixation of right intertrochanteric hip fracture with long intramedullary hip screw. History/Risk Factors: Recent fall wit ORIF this admission Clinical Indicators: Medical Progress Note: 06/12/19 " 77-year-old white female status post left hip fracture surgery. Her hemoglobin remains very low. I am going to order some iron infusions. Hemoglobin 7.74 today. She feels weak and fatigued. We will check labs again in the morning." Hgb: Pre-op 12.5, Post-Op 7.7/7.4/7.3 Hct: Pre- Op 38, Post-Op 22.9/22.7/21 EBL: 200cc Treatment: Ferric Sodium Gluconate 125Mg IVPB QD Xarelto 10 mg PO QD 1 Unit PRBC's Ordered 1700 cc cystaloids in OR Please provide further specificity regarding abnormal Lab and significance in the post-operative period. Acute Blood Loss Anemia (please specify cause) Iron Deficiency Anemia Anemia of Chronic Disease Other (please Specify) Unable to Determine In order to accurately reflect this patients severity of illness, please clarify if the post-operative diagnosis is: An expected post-procedural or post-surgical condition; Integral to the procedure; Inherent to the procedure; An unexpected post-procedural or post-surgical condition related to surgical care; Other, please specify Unable to determine Please continue to document in your progress notes and discharge summary in order to capture severity of illness and risk of mortality. Include clinical findings that support your diagnosis. Unable to determine, An expected post-procedural or post-surgical condition. MTDD
[2018-06-13] MEDS: RIVAROXABAN 10 MG TAB PO SCH (08:56)
[2018-06-13] MEDS: SODIUM FERRIC GLUCONAT-SUCROSE 125 MG in SODIUM CHLORIDE 0.9% 100 ML IVPB SCH (09:31)
--- NOTE | 2018-06-13 09:45 | P.PN ---
Subjective Progress Note Date: 06/13/18 Principal diagnosis: Status post right IT nail This is a 77 year-old female post right hip IT nail. This is post-op day 3. The patient was evaluated at the bedside today. The patient denies nausea, vomiting, abdominal pain, shortness of breath, and chest pain this morning. She states her pain is controlled at this time. The patient has been up with physical therapy. She is very anxious regarding her discharge plans this morning. Her hemoglobin is 7.3 today and when she is up she feels lightheaded and weak. Objective - Vital Signs Vital signs: Vital Signs Temp 97.9 F 06/13/18 07:35 Pulse 84 06/13/18 07:35 Resp 16 06/13/18 07:35 BP 98/61 06/13/18 07:35 Pulse Ox 93 L 06/13/18 07:35 Intake & Output 06/12/18 06/13/18 06/13/18 18:59 06:59 18:59 Intake Total 0 600 Output Total 1400 Balance -1400 600 Intake: Oral 0 Tube Feeding 400 Other 200 Output: Urine 1400 Uretheral (Choudhary) 1100 Other: Voiding Method Indwelling Catheter Bedside Commode # Voids 1 4 - Exam The patient does not appear in acute distress. Alert and orientated x3. Dressing is clean dry and intact. Incisions appear fine with no erythema or active drainage. Calf is soft and nontender. Good foot and ankle motion without difficulty. Sensation and circulatory status is intact. - Labs CBC & Chem 7: 06/13/18 07:22 06/13/18 07:22 Labs: Abnormal Lab Results - Last 24 Hours (Table) 06/13/18 06/13/18 Range/Units 07:22 07:22 RBC 2.36 L (3.80-5.40) m/uL Hgb 7.3 L (11.4-16.0) gm/dL Hct 21.0 L (34.0-46.0) % Glucose 115 H (74-99) mg/dL Calcium 8.1 L (8.4-10.2) mg/dL AST 37 H (14-36) U/L Total Protein 4.8 L (6.3-8.2) g/dL Albumin 2.5 L (3.5-5.0) g/dL Assessment and Plan (1) Fall Current Visit: Yes Status: Acute Code(s): W19.XXXA - UNSPECIFIED FALL, INITIAL ENCOUNTER SNOMED Code(s): 7314255 (2) Displaced intertrochanteric fracture of right femur Current Visit: Yes Status: Acute Code(s): S72.141A - DISPLACED INTERTROCHANTERIC FRACTURE OF RIGHT FEMUR, INIT SNOMED Code(s): 722370056 (3) Status post hip surgery Current Visit: Yes Status: Acute Code(s): Z98.890 - OTHER SPECIFIED POSTPROCEDURAL STATES SNOMED Code(s): 025294772 Plan: 1. Continue pain control 2. Hgb 7.3 today, 1 unit of PRBCs ordered. CBC in am 3. Anticoagulation with Xarelto per cardiology 4. Continue physical therapy and ambulation 5. Anticipate discharge to skilled rehab in [place] in the next day or 2.
[2018-06-13] MEDS: SENNOSIDES-DOCUSATE SODIUM 1 EACH TAB PO SCH (20:33)
--- NOTE | 2018-06-13 22:41 | PN ---
PROGRESS NOTE SUBJECTIVE: 77-year-old white female with right hip fracture status post surgery. She has she has been given iron infusions for severe anemia. Awaiting possible rehab back in [place], [place]. She is trying to get a ride home. Cardiology seen her for hypertension and tachycardia. She is feeling much better today. Hemoglobin is increasing with iron infusions. Cardiovascular S1, S2. Lungs clear. GI soft. ASSESSMENT: 1. Right hip fracture. 2. Anemia. Continue current treatment. Status post hip fracture. PT/OT. Possible discharge back to [place]. MMODL / IJN: [id number] /
[2018-06-13 23:17] VITALS: RESP 16
[2018-06-14] MEDS: HYDROcodone/APAP 5-325MG 1 EACH TAB PO PRN ×4 (01:26→18:23)
[2018-06-14 08:06] LABS: Basophils % (A) 0 %; Eosinophils # (A) 0.4 k/uL (0-0.7); Eosinophils % (A) 4 %; HCT 28.1 % (34.0-46.0); Lymphocytes # (A) 2.1 k/uL (1.0-4.8); Lymphocytes % (A) 26 %; MCH 30.3 pg (25.0-35.0); MCV 89.1 fL (80.0-100.0); Mean Platelet Volume 7.4; Monocytes # (A) 0.6 k/uL (0-1.0); Monocytes % (A) 7 %; Neutrophils # (A) 4.8 k/uL (1.3-7.7); Neutrophils % (A) 60 %; Platelet Count 226 k/uL (150-450); RBC 3.15 m/uL (3.80-5.40); RDW 14.2 % (11.5-15.5)
[2018-06-14 08:09] LABS: HGB 9.6 gm/dL (11.4-16.0)
[2018-06-14] MEDS: SODIUM FERRIC GLUCONAT-SUCROSE 125 MG in SODIUM CHLORIDE 0.9% 100 ML IVPB SCH (08:55)
[2018-06-14] MEDS: RIVAROXABAN 10 MG TAB PO SCH (08:59)
[2018-06-14] MEDS: hydrOXYzine PAMOATE 25 MG CAP PO PRN ×3 (08:59→18:25)
--- NOTE | 2018-06-14 08:59 | P.DS ---
Providers Date of admission: 06/09/18 23:04 Expected date of discharge: 06/14/18 Attending physician: Ar Wills Consults: 06/10/18 08:54 Consult Physician Stat Consulting Provider: Bubba Bolivar Consult Reason/Comments: medical management/surgical clearance Do you want consulting provider notified?: Yes 06/10/18 16:39 Consult Physician Routine Consulting Provider: Shai Smith Consult Reason/Comments: intraoperative tachycardia Do you want consulting provider notified?: Yes Primary care physician: Stated None - Discharge Diagnosis(es) (1) Displaced intertrochanteric fracture of right femur Patient was admitted to the OR on 06/10/2018 to undergo a right hip hemiarthroplasty. She had falllen and suffered a right hip fracture. She underwent the above procedure which she tolerated well without complication. Postoperative hospital course has remained without complication. On day of discharge she is afebrile, vital signs stable, labs within acceptable ranges, tolerating by mouth meds and diet, voiding without difficulty, positive flatus, denies abdominal pain or calf pain, pain is controlled on oral pain medication and has no new complaints. Wound is benign, neurovascular status is intact, calf is soft and nontender, abdomen soft and nontender. Review of systems is negative for numbness, tingling, fever, chills, chest pain, shortness breath, nausea, vomiting, dizziness, headaches, slurred speech or other. Current Visit: Yes Status: Acute Priority: Medium Patient Condition at Discharge: Fair Plan - Discharge Summary Discharge Rx Participant: No New Discharge Prescriptions: No Action Tyler-3 Fatty Acids/Fish Oil [Fish Oil 1,000 mg Softgel] 1 cap PO DAILY Vitamin E 100 unit PO DAILY Multivitamins, Thera [Multivitamin (formulary)] 1 tab PO DAILY Calcium Carbonate/Vitamin D3 [Calcium 500-Vit D3 200 Tablet] 1 tab PO DAILY Aspirin EC [Ecotrin Low Dose] 81 mg PO DAILY Ascorbic Acid [Vitamin C] 500 mg PO DAILY Flaxseed Oil [Tyler-3 Flaxseed Oil] 1,000 mg PO DAILY Discharge Medication List Ascorbic Acid [Vitamin C] 500 mg PO DAILY 06/09/18 [History] Aspirin EC [Ecotrin Low Dose] 81 mg PO DAILY 06/09/18 [History] Calcium Carbonate/Vitamin D3 [Calcium 500-Vit D3 200 Tablet] 1 tab PO DAILY 12/26 [History] Flaxseed Oil [Tyler-3 Flaxseed Oil] 1,000 mg PO DAILY 06/09/18 [History] Multivitamins, Thera [Multivitamin (formulary)] 1 tab PO DAILY 06/09/18 [History ] Tyler-3 Fatty Acids/Fish Oil [Fish Oil 1,000 mg Softgel] 1 cap PO DAILY [History] Vitamin E 100 unit PO DAILY 06/09/18 [History] Follow up Appointment(s)/Referral(s): None,Stated [Primary Care Provider] - 1-2 days
[2018-06-14] MEDS ORDERED: FERROUS SULFATE 325 MG TAB PO STA (09:27)
[2018-06-14] MEDS: SODIUM CHLORIDE 0.9% 1,000 ML IV SCH (14:12)
[2018-06-14] MEDS: SENNOSIDES-DOCUSATE SODIUM 1 EACH TAB PO SCH (21:33)
--- NOTE | 2018-06-15 06:13 | PN ---
PROGRESS NOTE SUBJECTIVE: A 77-year-old white female status post right hip fracture. Hemoglobin is improving. Cardiology signed off. Will possibly get her discharged home tomorrow. CARDIOVASCULAR: S1, S2. LUNGS: Clear. GI: Soft. EXTREMITIES: Wounds intact. ASSESSMENT: 1. Right hip fracture. 2. Hypertension. 3. Arrhythmia. Patient stabilized. Blood thinners are addressed. Possible discharge home in the morning. MMODL / IJN: [id number] /
[2018-06-15] MEDS: HYDROcodone/APAP 5-325MG 1 EACH TAB PO PRN ×2 (06:59→10:31)
[2018-06-15 07:12] LABS: Basophils % (A) 0 %; Eosinophils # (A) 0.1 k/uL (0-0.7); Eosinophils % (A) 2 %; HCT 27.5 % (34.0-46.0); HGB 9.2 gm/dL (11.4-16.0); Lymphocytes # (A) 1.1 k/uL (1.0-4.8); Lymphocytes % (A) 14 %; MCH 29.5 pg (25.0-35.0); MCHC 33.3 g/dL (31.0-37.0); MCV 88.7 fL (80.0-100.0); Mean Platelet Volume 7.5; Monocytes # (A) 0.6 k/uL (0-1.0); Monocytes % (A) 8 %; Neutrophils # (A) 5.9 k/uL (1.3-7.7); Neutrophils % (A) 75 %; Platelet Count 278 k/uL (150-450); RBC 3.11 m/uL (3.80-5.40); RDW 14.1 % (11.5-15.5); WBC 7.9 k/uL (3.8-10.6)
[2018-06-15 08:33] VITALS: TEMP 98.7
[2018-06-15] MEDS: SODIUM CHLORIDE 0.9% 1,000 ML IV SCH ×2 (08:53→08:57)
[2018-06-15] MEDS: RIVAROXABAN 10 MG TAB PO SCH (09:15)
[2018-06-15 09:21] VITALS: BP 130/62; PULSE 87
--- NOTE | 2018-07-04 11:06 | CDI ---
Last Revision, October 2017 Documentation Clarification Form Date: 07/04/2018 10:59:32 AM From: Gina Mensah RN, CCDS Admit Date: 06/09/2018 11:04:00 PM Patient Name: Carmen Moreno Visit Number: [id number] ATTENTION: The Clinical Documentation Specialists (CDI) and [facility] Coding Staff appreciate your assistance in clarifying documentation. Please respond to the clarification below the line at the bottom and electronically sign. The CDI & [facility] Coding staff will review the response and follow-up if needed. Please note: Queries are made part of the Legal Health Record. If you have any questions, please contact the author of this message via ITS. Dr. Bolivar "Very low Hemoglobin" is documented in the medical progress note and requires indication of clinical significance and cause. Patients Admitting Diagnosis: Right displaced intertrochanteric hip fracture. Post-Operative Diagnosis: Right displaced intertrochanteric hip fracture. Procedure performed: Operative fixation of right intertrochanteric hip fracture with long intramedullary hip screw. History/Risk Factors: Recent fall wit ORIF this admission Clinical Indicators: Medical Progress Note: 06/12/19 " 77-year-old white female status post left hip fracture surgery. Her hemoglobin remains very low. I am going to order some iron infusions. Hemoglobin 7.4 today. She feels weak and fatigued. We will check labs again in the morning." Hgb: Pre-op 12.5, Post-Op 7.7/7.4/7.3 Hct: Pre- Op 38, Post-Op 22.9/22.7/21 Treatment: Ferric Sodium Gluconate 125Mg IVPB QD Xarelto 10 mg PO QD 1 Unit PRBC's Ordered Please provide further specificity regarding abnormal Lab and significance in the post-operative period. Acute Blood Loss Anemia (please specify cause) Iron Deficiency Anemia Anemia of Chronic Disease Other (please Specify) Unable to Determine In order to accurately reflect this patients severity of illness, please clarify if the post-operative diagnosis is: An expected post-procedural or post-surgical condition; Integral to the procedure; Inherent to the procedure; An unexpected post-procedural or post-surgical condition related to surgical care; Other, please specify Unable to determine Please continue to document in your progress notes and discharge summary in order to capture severity of illness and risk of mortality. Include clinical findings that support your diagnosis. MTDD
--- NOTE | 2018-07-07 07:46 | DS ---
DISCHARGE SUMMARY ADDENDUM: To the discharge summary: Acute blood-loss anemia secondary to surgery. MMODL / IJN: [id number] /
== END 2018-06-15 13:55 | DRG 481 ==
LOC: EC 20:23 → 3SUR 23:04
PROVIDERS: ADMIT Orthopaedic Surgery; ATTEND Orthopaedic Surgery
PROC: 0QS636Z Reposition Right Upper Femur with Intramedullary Internal Fixation Device, Percutaneous Approach (ICD-10-PCS; principal; 2018-06-10 07:30)
PROC: 30233N1 Transfusion of Nonautologous Red Blood Cells into Peripheral Vein, Percutaneous Approach (ICD-10-PCS; 2018-06-13)
DX: S72.141A Displaced intertrochanteric fracture of right femur, initial encounter for closed fracture (principal); I47.1 Supraventricular tachycardia; D62 Acute posthemorrhagic anemia; I10 Essential (primary) hypertension; Z79.82 Long term (current) use of aspirin; Z79.899 Other long term (current) drug therapy; Z98.42 Cataract extraction status, left eye; Z98.41 Cataract extraction status, right eye; W01.0XXA Fall on same level from slipping, tripping and stumbling without subsequent striking against object, initial encounter
CPT/HCPCS: 51702; 71045; 73502; 80053; 84443; 84484; 85025; 85610; 85730; 86850; 86900; 86901; 86920; 93005; 93306; 96374; 99285